=== PATIENT | female | born 1945 | race Caucasian/White ===

== ENCOUNTER 2018-04-11 21:37 | Emergency (ER) | payer MEDICARE, OTHER ==
[~2018-04-11] VITALS: Ht 167.6 cm; Wt 99.3 kg
[~2018-04-11 21:37] MED LIST: ANAS1TAB PO; BENZ-8 PO; CYCL5TAB PO; GUAI-108 PO; IRBE300T PO; LEVO100T PO; LEVO112T4 PO; LEVO750T31 PO
--- NOTE | 2018-04-11 22:38 | PHYS DOC ---
Past History Past Medical History: Cancer, Gallstones, Hypertension, Hypothyroid, Other Past Surgical History: Cancer Surgery, Cholecystectomy, Hysterectomy, Other Smoking: Non-smoker Alcohol Use: None Drug Use: None Adult General Chief Complaint Chief Complaint: HAND PROBLEM HPI HPI 72-year-old female presents after fall at home. The patient uses a cane and she tripped over her own feet. As she went down she fell with her right hand extended. She felt as though she hyperextended her second digit. She did not hit her head. She was not knocked out. She has no other injuries. When she first got up from the floor, it was difficult to bend her index finger. The pain has improved and she is able to open and close her hand. She took indomethacin for pain relief at home. She denies wrist or elbow pain. She is here to make sure it is not broken. Review of Systems Review of Systems Constitutional: Denies fever or chills [] Eyes: Denies change in visual acuity, redness, or eye pain [] HENT: Denies nasal congestion or sore throat [] Respiratory: Denies cough or shortness of breath [] Cardiovascular: No additional information not addressed in HPI [] GI: Denies abdominal pain, nausea, vomiting, bloody stools or diarrhea [] : Denies dysuria or hematuria [] Musculoskeletal: Right hand pain [] Integument: Denies rash or skin lesions [] Neurologic: Denies headache, focal weakness or sensory changes [] Endocrine: Denies polyuria or polydipsia [] All other systems were reviewed and found to be within normal limits, except as documented in this note. Allergies Allergies Allergies Coded Allergies Type Severity Reaction Last Updated Verified azithromycin Allergy Mild MINOR RASH 04/24/16 Yes Physical Exam Physical Exam Constitutional: Well developed, well nourished, no acute distress, non-toxic appearance. [] HENT: Normocephalic, atraumatic, bilateral external ears normal, oropharynx moist, no oral exudates, nose normal. [] Eyes: PERRLA, EOMI, conjunctiva normal, no discharge. [] Neck: Normal range of motion, no tenderness, supple, no stridor. [] Cardiovascular:Heart rate regular rhythm, no murmur [] Lungs & Thorax: Bilateral breath sounds clear to auscultation [] Abdomen: Bowel sounds normal, soft, no tenderness, no masses, no pulsatile masses. [] Skin: Warm, dry, no erythema, no rash. [] Back: No tenderness, no CVA tenderness. [] Extremities: Right second and third digit of the right hand swollen with mild ecchymosis. No obvious deformity. Range of motion appears to be intact.[] Neurologic: Alert and oriented X 3, normal motor function, normal sensory function, no focal deficits noted. [] Psychologic: Affect normal, judgement normal, mood normal. [] Current Patient Data Vital Signs Vital Signs Date Time Temp Pulse Resp B/P (MAP) Pulse Ox O2 Delivery O2 Flow Rate FiO2 04/11/18 21:56 98.0 83 18 98 Room Air EKG EKG [] Radiology/Procedures Radiology/Procedures [] Impressions: My reading: There is no fracture or dislocation. Course & Med Decision Making Course & Med Decision Making Pertinent Labs and Imaging studies reviewed. (See chart for details) The patient's x-rays negative for fracture. The patient is having improved range of motion since coming to the ED. The pain has improved slightly. I will give her a [place] 5/325 for pain and to help her sleep. I will also provide a prescription for 10 of these for home. The patient has a ride home with family. She is stable for discharge at this time. [] Dragon Disclaimer Dragon Disclaimer This electronic medical record was generated, in whole or in part, using a voice recognition dictation system. Departure Departure: Referrals: JUAN DAVID YOST DO (PCP) GABRIELLA VALDEZ DO Apr 11, 2018 22:38
[2018-04-11] MEDS ORDERED: HYDR-971 PO (23:30)
[2018-04-11] MEDS ORDERED: HYDROcodone/APAP 5/325MG 1 TAB TABLET PO ONE (23:30)
[2018-04-11 23:50] VITALS: BP 164/70
--- NOTE | 2018-04-12 08:04 | RAD ---
Examination: 3 views of the right hand HISTORY: History of fall, pain. COMPARISON: None available. FINDINGS: The alignment of the metacarpophalangeal joints, interphalangeal grossly appears unremarkable. There is no acute fracture or dislocation identified. IMPRESSION: No acute osseous findings Electronically signed by: Jorge Luis Santana MD (04/12/2018 8:00 AM) [facility]
== END 2018-04-11 23:59 | disposition home or self-care (01) ==
LOC: ER 21:37
DX: S60.031A Contusion of right middle finger without damage to nail, initial encounter (principal); S60.021A Contusion of right index finger without damage to nail, initial encounter; I10 Essential (primary) hypertension; E03.9 Hypothyroidism, unspecified; Z88.1 Allergy status to other antibiotic agents; W01.0XXA Fall on same level from slipping, tripping and stumbling without subsequent striking against object, initial encounter; Y93.89 Activity, other specified; Y99.8 Other external cause status; Y92.098 Other place in other non-institutional residence as the place of occurrence of the external cause
CPT/HCPCS: 73130; 99284

== ENCOUNTER → 2018-11-18 | Outpatient (CLI) | payer MEDICARE, OTHER ==
[~2018-11-18] MED LIST changes: +HYDR-3165 PO
--- NOTE | 2018-11-18 15:02 | RAD ---
EXAM: Dual energy x-ray absorptiometry (DEXA). HISTORY: Postmenopausal female presents for osteoporosis screening. COMPARISON: 05/27/2013. TECHNIQUE: Dual energy x-ray absorptiometry of the lumbar spine and right hip was performed. Calculation of bone mineral density based on standard deviations above or below the expected young adult normal value (T-score) was completed. FINDINGS: The average bone mineral density in the 1st through 4th lumbar vertebrae is 1.239 g/cmxcm, corresponding with a T-score of 0.5. There has been a 1.7% decrease in density of the lumbar spine compared to the prior study. The average total bone mineral density in the right hip is 0.747 g/cmxcm, corresponding with a T-score of -1.7. There has been a 2.7% decrease in density of the right hip compared to the prior study. IMPRESSION: 1. Osteopenia measured at the right hip. 2. Normal bone mineral density measured at the lumbar spine. Note: Definitions established by the World Health Organization: 1. Normal: T-score is -1.0 or above. 2. Osteopenia: T-score is between -1.0 and -2.5 . 3. Osteoporosis: T-score is -2.5 or below. Electronically signed by: Prudence Gongora MD (11/18/2018 2:59 PM) [place] [id number]
== END | disposition home or self-care (01) ==
LOC: DXRAD 11-18 14:00
PROVIDERS: ATTEND General Practice
DX: Z85.3 Personal history of malignant neoplasm of breast (principal); Z78.0 Asymptomatic menopausal state
CPT/HCPCS: 77080

== ENCOUNTER 2021-11-13 17:54 | Inpatient (IN) | payer MEDICARE, OTHER ==
[~2021-11-13] VITALS: Ht 167.6 cm; Wt 101.6 kg
--- NOTE | 2021-11-13 18:17 | PHYS DOC ---
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 I was turning by the refrigerator starting to go out the door to the grocery store.... I want to get therapy for the bad weather came in tonight and tomorrow.... But I went now all of a sudden... and I really hurt my knees... my lower legs and.... my right foot...it is particularly..sore.. and This right lower leg is really swollen.. it just happened... "..." The same thing happened back in May but they said everything was okay"... Patient is a 76 year old female who presents with above hx and complaints of fall and injury to lower legs. Patient has post polio sequela lower leg weakness and muscle loss. Has had multiple surgeries. Patient normally follows with Dr. Enriquez for care. Patient denies any fever ,chills. No recent travel. No sick ill contacts. Patient did get COVID vaccination x2 and flu vaccination. Patient denies any other injury other than to the lower legs. Patient rates the pain mostly in her right leg. Patient has past medical history of cancer, polio, hypertension, pneumonia. Patient has had cholecystectomy and hysterectomy and palliative repair lower limbs for function ( [place] and fixation). Review of Systems: Review of Systems: Constitutional: Denies fever or chills Eyes: Denies change in visual acuity HENT: Denies nasal congestion or sore throat Respiratory: Denies cough or shortness of breath Cardiovascular: Denies chest pain or edema GI: Denies abdominal pain, nausea, vomiting, bloody stools or diarrhea : Denies dysuria Musculoskeletal: Complains of lower leg pains from fall Integument: Denies rash Neurologic: Denies headache, focal weakness or sensory changes Endocrine: Denies polyuria or polydipsia Lymphatic: Denies swollen glands Psychiatric: Denies depression or anxiety Family History: Family History: Noncontributory to presentation Current Medications: Current Meds: See nursing for home meds Allergies: Allergies: Allergies Coded Allergies Type Severity Reaction Last Updated Verified azithromycin Allergy Mild MINOR RASH 04/24/16 Yes Physical Exam: PE: Constitutional: inacute distress, non-toxic appearance. [] HENT: Normocephalic, atraumatic, bilateral external ears normal, oropharynx [address], no oral exudates, nose normal. [] Eyes: PERRLA, EOMI, conjunctiva normal, no discharge. [] Neck: Normal range of motion, no tenderness, supple, no stridor. [] Cardiovascular: Tachycardia heart rate regular rhythm, no murmur [] Lungs & Thorax: Bilateral breath sounds clear to auscultation [] Abdomen: Bowel sounds normal, soft, no tenderness, no masses, no pulsatile masses. Obese. Old surgery scars. Skin: Warm, dry, no erythema, no rash. [Poor turgor Back: No tenderness, no CVA tenderness. [] Extremities: Bilateral lower leg tenderness, no cyanosis, no clubbing, ROM intact, bilateral lower leg edema. More pain in right lower leg. Surgery scars lower leg Neurologic: Alert and oriented X 3, moves all extremities on request but somewhat limited due to pain in lower limbs, does have distal sensory, no focal deficits noted. [] Psychologic: Affect anxious, judgement normal, mood normal. [] EKG: EKG: My interpretation EKG shows a sinus rhythm at 77 bpm. Leftward axis anterior fascicular block. Has a small right bundle branch block. No findings of acute STEMI with contralateral changes however. Time EKG is 2133 hrs. [] Radiology/Procedures: Radiology/Procedures: [address] [address] IMAGING REPORT Signed PATIENT: ANGELITA MORALES ACCOUNT: [id number] : 1945 LOCATION: SOUTH AGE: 76 SEX: F EXAM STATUS: ADM IN ORD. PHYSICIAN: JULIA PERDOMO MD REASON: Weakness, cough hx. polio PROCEDURE: PORTABLE CHEST 1V Exam: Chest one view INDICATION: Weakness, TECHNIQUE: Frontal view of the chest Comparisons: 04/26/2016 FINDINGS: Heart is mildly enlarged. Pulmonary vessels are within normal limits. The lung and pleural spaces are clear. IMPRESSION: No acute pulmonary process. Electronically signed by: Vicki Coronel MD (11/13/2021 11:01 PM) [facility] DICTATED AND SIGNED BY: VICKI CORONEL MD DATE: 11/13/212299 CC: JUAN DAVID YOST DO; SHERRI ROJAS MD; JULIA PERDOMO MD ~MTH0 0 [[address] [address] IMAGING REPORT Signed PATIENT: ANGELITA MORALES ACCOUNT: [id number] : 1945 LOCATION: ER AGE: 76 SEX: F EXAM STATUS: REG ER ORD. PHYSICIAN: JULIA PERDOMO MD REASON: Fall, bilateral knee pain, hx polio PROCEDURE: KNEE BILAT 4V Exam Date: 11/13/2021 6:53 PM XR TIBIA+FIBULA, XR KNEE 4 VIEWS WITH PATELLA Indication: Reason: Fall, bilateral lower leg pain, hx polio / Spl. Instructions: / History: . FINDINGS/ IMPRESSION: RIGHT: There is a nondisplaced acute fracture of the right proximal fibula diametaphysis without significant angulation. There is a suprapatellar joint effusion. Alignment and joint spaces are maintained. Small osteophytes are noted. Diffuse subcutaneous edema is noted. There is a suprapatellar joint effusion. LEFT: No acute fracture or dislocation. Alignment and joint spaces are maintained. Small osteophytes are noted. There is a fractured subtalar staple. Electronically signed by: Andrew Salazar MD (11/13/2021 8:16 PM) [facility] DICTATED AND SIGNED BY: ANDREW SALAZAR MD DATE: 11/13/212007 CC: JUAN DAVID YOST DO; JULIA PERDOMO MD ~IDO0 0 ][address] [address] IMAGING REPORT Signed PATIENT: ANGELITA MORALES ACCOUNT: [id number] : 1945 LOCATION: ER AGE: 76 SEX: F EXAM STATUS: REG ER ORD. PHYSICIAN: JULIA PERDOMO MD REASON: Fall, bilateral lower leg pain, hx polio PROCEDURE: TIBIA FIBULA BILAT Exam Date: 11/13/2021 6:53 PM XR TIBIA+FIBULA, XR KNEE 4 VIEWS WITH PATELLA Indication: Reason: Fall, bilateral lower leg pain, hx polio / Spl. Instructions: / History: . FINDINGS/ IMPRESSION: RIGHT: There is a nondisplaced acute fracture of the right proximal fibula diametaphysis without significant angulation. There is a suprapatellar joint effusion. Alignment and joint spaces are maintained. Small osteophytes are noted. Diffuse subcutaneous edema is noted. There is a suprapatellar joint eff usion. LEFT: No acute fracture or dislocation. Alignment and joint spaces are maintained. Small osteophytes are noted. There is a fractured subtalar staple. Electronically signed by: Andrew Salazar MD (11/13/2021 8:16 PM) [facility] DICTATED AND SIGNED BY: ANDREW SALAZAR MD DATE: 11/13/212007 CC: JUAN DAVID YOST DO; JULIA PERDOMO MD ~MTH0 0 Heart Score: C/O Chest Pain: No HEART Score for Chest Pain: HEART Score for Chest Pain Response (Comments) Value History Moderately Suspicious 1 ECG Nonspecific Repolarizatio 1 Age > 65 2 Risk Factors 1 or 2 Risk Factors 1 Troponin < Normal Limit 0 Total 5 Risk Factors: Risk Factors: DM, Current or recent (<one month) smoker, HTN, HLP, family history of CAD, obesity. Risk Scores: Score 0 - 3: 2.5% MACE over next 6 weeks - Discharge Home Score 4 - 6: 20.3% MACE over next 6 weeks - Admit for Clinical Observation Score 7 - 10: 72.7% MACE over next 6 weeks - Early Invasive Strategies Course & Med Decision Making: Course & Med Decision Making Pertinent Labs and Imaging studies reviewed. (See chart for details) Pt declining transfer to another hospital for orthro. consult. States she just wants pain control tonight until she can get set up at home.. Risks discussed with pt. - compartment syndrome ect. Pt. insistent on just admit for pain control tonight. Begged pt. to reconsider this decision, and consider transfer for orthro. consult. Pt. exhibit [employer] capacity. Discussed presentation, testing and treatment plan with . Advised will admit patient for pain control. Patient is aware we have no orthopedic consults in the hospital. Patient admitted for only pain control will need to follow-up with orthopedics. Wear splint. Elevated legs. Obtain a wheelchair. Have son rearrange home so patient will be able to manage. Currently patient lives alone Impression: 1. Fall 2. Lower limb injury bilateral 3. Diffuse edema with fracture of second metatarsal head on the right ankle /foot 4. Diffuse edema with fracture of staple on the left ankle/foot 5. Nondisplaced fracture of right fibular proximal with edema. 6. Hx Polio-sequela 7. Mild leukocytosis 14.8 [] Note there may be information loss- see Downtime ticket [id number]. Dragon Disclaimer: Dragon Disclaimer: This electronic medical record was generated, in whole or in part, using a voice recognition dictation system. Departure Departure: Referrals: JUAN DAVID YOST DO (PCP) Dragon Disclaimer This chart was dictated in whole or in part using Voice Recognition software in a busy, high-work load, and often noisy Emergency Department environment. It may contain unintended and wholly unrecognized errors or omissions. Dragon Disclaimer This chart was dictated in whole or in part using Voice Recognition software in a busy, high-work load, and often noisy Emergency Department environment. It may contain unintended and wholly unrecognized errors or omissions. Dragon Disclaimer This chart was dictated in whole or in part using Voice Recognition software in a busy, high-work load, and often noisy Emergency Department environment. It may contain unintended and wholly unrecognized errors or omissions. JULIA PERDOMO MD Nov 13, 2021 18:16
[2021-11-13] MEDS ORDERED: KETOROLAC 60 MG/2 ML VIAL. IM ONE (18:30)
[2021-11-13] MEDS ORDERED: oxyCODONE/APAP 5/325 1 TAB TABLET PO ONE (18:30)
[2021-11-13 20:15] LABS: INFLUENZA A PATIENT NEGATIVE (NEGATIVE); INFLUENZA B PATIENT NEGATIVE (NEGATIVE)
--- NOTE | 2021-11-13 20:18 | RAD ---
Exam Date: 11/13/2021 6:53 PM XR TIBIA+FIBULA, XR KNEE 4 VIEWS WITH PATELLA Indication: Reason: Fall, bilateral lower leg pain, hx polio / Spl. Instructions: / History: . FINDINGS/ IMPRESSION: RIGHT: There is a nondisplaced acute fracture of the right proximal fibula diametaphysis without significant angulation. There is a suprapatellar joint effusion. Alignment and joint spaces are maintained. S mall osteophytes are noted. Diffuse subcutaneous edema is noted. There is a suprapatellar joint eff usion. LEFT: No acute fracture or dislocation. Alignment and joint spaces are maintained. Small osteophytes are noted. There is a fractured subtalar staple. Electronically signed by: Mauro Salazar MD (11/13/2021 8:16 PM) [facility]
--- NOTE | 2021-11-13 20:34 | RAD ---
Exam Date: 11/13/2021 6:53 PM XR BILAT FEET 3 VIEWS Indication: Reason: Fall, bilateral foot pain, hx polio / Spl. Instructions: / History: . FINDINGS/ IMPRESSION: RIGHT: There is a nondisplaced impacted acute fracture of the second metatarsal head. Moderate degenerative changes noted. Diffuse osteopenia limits evaluation. Diffuse soft tissue swelling is noted. Subt alar fusion noted with intact staple. LEFT: Subtalar fusion noted with fractured staple. No acute fracture or dislocation. Moderate degenerative changes noted. Diffuse osteopenia limits ev aluation. Diffuse soft tissue swelling noted. Electronically signed by: Mauro Salazar MD (11/13/2021 8:32 PM) [facility]
[2021-11-13] MEDS ORDERED: IV RINGERS SOLUTION,LACTATED 1,000 ML IV SCH ×2 (21:00→21:30)
[2021-11-13] MEDS ORDERED: ONDANSETRON PF 4 MG/2 ML VIAL. IVP PRN (21:30)
[2021-11-13] MEDS ORDERED: MORPHINE SULFATE 2 MG/ML DISP.SYRIN. IVP PRN (21:30)
[2021-11-13] MEDS ORDERED: ACETAMINOPHEN 325 MG TABLET PO PRN (21:30)
--- NOTE | 2021-11-13 23:03 | RAD ---
Exam: Chest one view INDICATION: Weakness, TECHNIQUE: Frontal view of the chest Comparisons: 04/26/2016 FINDINGS: Heart is mildly enlarged. Pulmonary vessels are within normal limits. The lung and pleural spaces are clear. IMPRESSION: No acute pulmonary process. Electronically signed by: Vicki Cummings MD (11/13/2021 11:01 PM) [facility]
[2021-11-13 23:38] LABS: BASO # 0.1 x10^3/uL (0.0-0.2); BASO % 1 % (0-3); EOS # 0.1 x10^3/uL (0.0-0.7); EOS % 0 % (0-3); HEMATOCRIT 42.8 % (36.0-47.0); HEMOGLOBIN 14.6 g/dL (12.0-15.5); LYMPH # 3.9 x10^3/uL (1.0-4.8); LYMPH % 27 % (24-48); MEAN CORPUSCULAR HEMOGLOBIN 32 pg (25-35); MEAN CORPUSCULAR HGB CONC 34 g/dL (31-37); MEAN CORPUSCULAR VOLUME 94 fL (79-100); MONO # 0.7 x10^3/uL (0.0-1.1); MONO % 5 % (0-9); NEUT % 68 % (31-73); PLATELET COUNT 222 x10^3/uL (140-400); RED BLOOD COUNT 4.56 x10^6/uL (3.50-5.40); RED CELL DISTRIBUTION WIDTH 12.9 % (11.5-14.5); WHITE BLOOD COUNT 14.8 x10^3/uL (4.0-11.0)
[2021-11-13 23:45] LABS: CALCIUM 9.1 mg/dL (8.5-10.1); CREATININE 0.6 mg/dL (0.6-1.0); GFR 97.7; MAGNESIUM 2.1 mg/dL (1.8-2.4); POTASSIUM 3.6 mmol/L (3.5-5.1)
[2021-11-14 00:10] VITALS: BP 174/80
[2021-11-14 05:00] VITALS: BP 166/77
--- NOTE | 2021-11-14 06:38 | EKG ---
[address] [address] Test Date: 2021-11-13 Test Time: 21:33:45 Pat Name: ANGELITA MORALES Department: Room: 105 A Gender: F Associate [employer]: : 1945 Requested By: JULIA PERDOMO Order Number: [id number] Reading MD: Wilfredo Duque MD Measurements Intervals [place] Rate: 77 P: 25 CO: 172 QRS: -43 QRSD: 94 T: 38 QT: 380 QTc: 432 Interpretive Statements SINUS RHYTHM lad Electronically Signed On 11-20-2021 16:17:53 AUTOGRAPHER by Wilfredo Duque MD
[2021-11-14] MEDS: IPRATRPIUM/ALBUTEROL 0.5/2.5MG 3 ML NEBU. NEB SCH ×3 (08:00→15:35)
[2021-11-14] MEDS ORDERED: KETOROLAC 30 MG/ML VIAL. ONE (08:25)
[2021-11-14] MEDS: oxyCODONE/APAP 7.5/325 1 TAB TABLET PO PRN ×2 (08:54→19:31)
[2021-11-14] MEDS: KETOROLAC 30 MG/ML VIAL. IVP PRN ×2 (08:54→19:32)
[2021-11-14 09:27] LABS: BACTERIA,URINE 0 /HPF (0-FEW); CLARITY,URINE HAZY; COLOR,URINE YELLOW; GLUCOSE,URINE NEG (NEG); NITRITE,URINE NEG (NEG); SQUAMOUS EPITHELIAL CELL,UR MOD /LPF; UROBILINOGEN,URINE 0.2 mg/dL (0.2 mg/dL)
[2021-11-14 09:28] LABS: HYALINE CASTS, URINE OCC /HPF
[2021-11-14 12:09] VITALS: BP 199/90
[2021-11-14] MEDS: LOSARTAN 50 MG TABLET. PO SCH (12:09)
[2021-11-14 16:21] VITALS: BP 178/83
[2021-11-14 19:00] VITALS: BP 129/87
--- NOTE | 2021-11-14 19:20 | HP ---
DATE OF SERVICE: 11/14/2021 ADMIT DATE: 11/13/2021 HISTORY OF PRESENT ILLNESS: A 76-year-old female came in through the Emergency Room. The patient was going out to the grocery store. She is a post-polio syndrome individual. Apparently, she fell on her legs, really hurt her right knee, right foot in particular. The right lower leg was really swollen. Things just happened very quickly. She has been having problems off and on for the last several months with this falling type of injury. It could be from her postpolio sequela, lower leg weakness, and muscle loss. Has had multiple surgeries. The patient also denies any recent travel. She has had COVID vaccinations x2, plus flu vaccination. She denies any back injuries. PAST MEDICAL HISTORY: Multiple, include that of cardiac disorders, hypertension, cholecystectomy, mastectomy, lumpectomy, hysterectomy, x2, several surgeries on her legs as a result of post-polio syndrome, hypothyroidism, cancer chemotherapy. Immunizations were up-to-date, as indicated above. She has had a left mastectomy. She has had multiple surgeries as a child on her feet and legs. She also has a hysterectomy for uterine cancer. MEDICATIONS: The patient's medications include anastrozole 1 mg, irbesartan 300 mg, levothyroxine 112 mcg daily. ALLERGIES: The patient has an allergy to AZITHROMYCIN. SOCIAL HISTORY: Denies smoking, alcohol or drug use. FAMILY HISTORY: Noncontributory. REVIEW OF SYSTEMS: The patient denies chest pain, shortness of breath. Denies any melena, hematochezia, or hematemesis. Denies abdominal pain. Does have generalized weakness and bruising to her legs. The patient otherwise is baseline, stable. PHYSICAL EXAMINATION: GENERAL: The patient is a pleasant white female, in pain. Otherwise, well developed, well nourished. VITAL SIGNS: Blood pressure 150/98, respiratory rate 20, pulse 80, afebrile, 96% on room air. HEENT: The head was atraumatic, normocephalic. Eyes: PERRL without jaundice. The mouth and throat were normal. NECK: Supple without JVD, carotid bruits, nor thyroidmegaly. LUNGS: Basically clear to auscultation. CARDIOVASCULAR: Regular sinus rhythm, S1, S2, without murmur, rub, thrill, or extra heart sound. ABDOMEN: Protuberant, soft, nontender. No rebound or guarding. Positive bowel sounds. No hepatosplenomegaly was noted. EXTREMITIES: The legs show marked atrophy, musculoskeletal atrophy to the lower extremity. The patient is bound and bandaged quite tightly. NEUROLOGIC: Otherwise, speech was fluent, spontaneous, and appropriate. LABORATORY DATA: The patient's CBC was within normal limits except for a white count elevated at 14.8. Sodium and potassium 140 and 3.6, BUN and creatinine 14 and 0.6. TSH was normal. The patient's serology was negative for SARS-COVID, as well as flu were negative. The patient's urine did show specific gravity greater than 1.030. Did have a trace of leukocytes and 5-10 whites, negative nitrites. The patient's x-rays were taken. Chest x-ray was unremarkable. X-rays of the right lower leg showed a nondisplaced acute fracture of the right proximal fibular diametaphysis without significant angulation or suprapatellar joint effusion. Alignment of the joint spaces are maintained. Small osteophyte, diffuse subcutaneous edema was noted and subpatellar joint effusion. On the left, everything was basically normal. There is a fractured subpatellar staple. The knee x-rays were basically as what was stated earlier on the lower extremities. Foot x-ray, right, showed a nondisplaced impacted acute fracture of the second metatarsal head, moderate degenerative changes noted, diffuse osteopenia, limits evaluation. Subtalar fusion noted in the intact staple. Left shows subtalar fusion noted with fractured staple. Otherwise, moderate degenerative changes, diffuse osteopenia and diffuse soft tissue swelling is noted. IMPRESSION: Multiple falls, postpolio syndrome, fracture to the right proximal fibular diametaphysis without angulation, effusion to the joint, diffuse subcutaneous edema. Left lower extremity shows some osteophytes and a possible fractured subtalar staple, dehydration, essential hypertension. Blood pressure went up to 170/80 (NC). The patient had an EKG, showed normal sinus rhythm. We will go ahead and continue to monitor the patient's pain management, some mild anticoagulation. We will probably need to transfer obviously for orthopedic consultation and control her blood pressure by adding amlodipine 10 mg daily. ROSE/LASHAWN DR: PJC/nts TID: [id number]
[2021-11-14] MEDS: APIXABAN 2.5 MG TABLET PO SCH (19:31)
[2021-11-14] MEDS: amLODIPine BESYLATE 10 MG TABLET PO SCH (19:34)
[2021-11-14] MEDS ORDERED: IPRATRPIUM/ALBUTEROL 0.5/2.5MG 3 ML NEBU. NEB PRN (20:15)
[2021-11-14 23:00] VITALS: BP 178/73
[2021-11-15 05:45] VITALS: BP 164/73
[2021-11-15] MEDS: KETOROLAC 30 MG/ML VIAL. IVP PRN ×2 (05:57→19:53)
[2021-11-15] MEDS: oxyCODONE/APAP 7.5/325 1 TAB TABLET PO PRN (05:57)
[2021-11-15] MEDS ORDERED: amLODIPine BESYLATE 10 MG TABLET PO SCH (09:00)
[2021-11-15] MEDS: amLODIPine BESYLATE 10 MG TABLET PO SCH (09:21)
[2021-11-15] MEDS: LEVOTHYROXINE 112 MCG TABLET PO SCH (09:21)
[2021-11-15] MEDS: APIXABAN 2.5 MG TABLET PO SCH ×2 (09:22→19:53)
[2021-11-15] MEDS: LOSARTAN 50 MG TABLET. PO SCH (09:23)
[2021-11-15] MEDS ORDERED: ONDANSETRON PF 4 MG/2 ML VIAL. ONE (09:53)
[2021-11-15] MEDS: ONDANSETRON PF 4 MG/2 ML VIAL. IVP PRN ×3 (09:56→22:51)
[2021-11-15 11:50] VITALS: BP 171/72
[2021-11-15 12:40] LABS: BASO # 0.1 x10^3/uL (0.0-0.2); BASO % 1 % (0-3); EOS # 0.4 x10^3/uL (0.0-0.7); EOS % 4 % (0-3); LYMPH # 2.3 x10^3/uL (1.0-4.8); LYMPH % 22 % (24-48); MEAN CORPUSCULAR HEMOGLOBIN 33 pg (25-35); MEAN CORPUSCULAR HGB CONC 34 g/dL (31-37); MEAN CORPUSCULAR VOLUME 95 fL (79-100); MONO # 0.5 x10^3/uL (0.0-1.1); MONO % 5 % (0-9); NEUT # 7.1 x10^3uL (1.8-7.7); NEUT % 68 % (31-73); PLATELET COUNT 189 x10^3/uL (140-400); RED CELL DISTRIBUTION WIDTH 12.8 % (11.5-14.5); WHITE BLOOD COUNT 10.4 x10^3/uL (4.0-11.0)
[2021-11-15 13:19] LABS: CALCIUM 8.6 mg/dL (8.5-10.1); CREATININE 0.5 mg/dL (0.6-1.0); GFR 120.6; POTASSIUM 3.8 mmol/L (3.5-5.1)
--- NOTE | 2021-11-15 14:22 | RAD ---
Exam Date: 11/15/2021 2:[address] HEAD/BRAIN WO Indication: Reason: HEAD TRAUMA / Spl. Instructions: / History: . TECHNIQUE: Head CT was performed without intravenous contrast. One or more of the following dose re duction techniques were utilized: *Automated exposure control (AEC) *Adjustment of mA and/or kV according to patient size *Use of iterative reconstruction technique *CT scan done according to ALARA, or ALARA/IMAGE GENTLY FINDINGS: The ventricles and sulci are prominent consistent with cerebral volume loss. Patchy ill-defined low attenuation areas in the subcortical and periventricular white matter bilaterally are consistent with microvascular disease. There is no evidence of acute intracranial hemorrhage, extra-axial collecti on, mass effect, midline shift, or acute territorial infarct. No lesion of the skull base or the calv arium is seen. The visualized paranasal sinuses, mastoid air cells and orbits are normal in appearanc e. IMPRESSION: No evidence for acute intracranial abnormality. Volume loss and microvascular disease. Electronically signed by: Mauro Salazar MD (11/15/2021 2:19 PM) [facility]
[2021-11-15 15:35] VITALS: BP 186/85
[2021-11-15] MEDS: ACETAMINOPHEN 500 MG TABLET PO PRN ×2 (17:32→22:48)
[2021-11-15 20:32] VITALS: BP 185/74
[2021-11-15] MEDS ORDERED: cloNIDine HCL 0.1 MG TABLET PO SCH (21:00)
--- NOTE | 2021-11-15 23:05 | PN ---
SUBJECTIVE: A 76-year-old post-polio patient with multiple falls and fracture to her various bones in her body. The patient was noted to have a nondisplaced acute fracture of the right proximal fibula. The patient has been discussed with the orthopedic doctors down at and they do not recommend any inpatient care down at their facility that she can follow up with Dr. Burnette at [phone] [facility] as an outpatient to follow up on this; however, the patient herself was feeling somewhat nauseated, had some vomiting this morning. OBJECTIVE: VITAL SIGNS: Blood pressure 186/85, respiratory rate 18, pulse 80, afebrile, 93 on room air (NC) on the blood pressure. GENERAL: The patient otherwise presently alert, looks a little bit ill. LUNGS: Diminished, but clear. CARDIOVASCULAR: Stable. ABDOMEN: Soft, somewhat bloated, had a bowel movement yesterday. Positive bowel sounds, no hepatosplenomegaly. EXTREMITIES: No clubbing, cyanosis. Baseline there with atrophy and tenderness noted. We will continue to monitor the patient accordingly, make further evaluation on her as indicated and make adjustments on her essential hypertension, which seems more of the issue right at the present time as the orthopedic doctors do not believe she needs any type of medical care for the bones at the present time or surgical treatment that is probably and not in the future, but will be seen by Dr. Burnette as an outpatient. IMPRESSION: Noted essential hypertensive urgency, multiple fractures, post-polio syndrome, history of uterine and breast cancer. PLAN: Continue to monitor carefully on that blood pressure and make further adjustments as indicated. ROSE/CARMEN/MELLISSA DR: Fritz TID: [id number]
[2021-11-15 23:52] VITALS: BP 183/76
[2021-11-16 05:42] VITALS: BP 144/72
[2021-11-16] MEDS: KETOROLAC 30 MG/ML VIAL. IVP PRN (05:52)
[2021-11-16] MEDS: ACETAMINOPHEN 500 MG TABLET PO PRN ×2 (05:52→20:36)
[2021-11-16] MEDS: LEVOTHYROXINE 112 MCG TABLET PO SCH (07:58)
[2021-11-16] MEDS: ONDANSETRON PF 4 MG/2 ML VIAL. IVP PRN (08:12)
[2021-11-16] MEDS ORDERED: NEOMY/BACITR/POLYMYXIN OINT PACKET. TP ONE (09:45)
[2021-11-16] MEDS: oxyCODONE/APAP 7.5/325 1 TAB TABLET PO PRN (09:58)
[2021-11-16] MEDS: LOSARTAN 50 MG TABLET. PO SCH (09:58)
[2021-11-16] MEDS: amLODIPine BESYLATE 10 MG TABLET PO SCH (09:58)
[2021-11-16] MEDS: APIXABAN 2.5 MG TABLET PO SCH ×2 (09:58→20:37)
[2021-11-16 11:06] VITALS: BP 143/53
[2021-11-16 14:54] VITALS: BP 127/54
[2021-11-16] MEDS: cloNIDine HCL 0.1 MG TABLET PO SCH ×2 (15:01→20:37)
[2021-11-16 19:42] VITALS: BP 159/72
[2021-11-16] MEDS: NEOMY/BACITR/POLYMYXIN OINT PACKET. TP SCH (20:37)
[2021-11-16] MEDS: DOCUSATE SODIUM 100 MG CAPSULE PO PRN (20:55)
[2021-11-16 23:00] VITALS: BP 114/57
--- NOTE | 2021-11-16 23:47 | PN ---
DATE: 11/16/2021 SUBJECTIVE: A 76-year-old female in with multiple injuries to her legs as a result of multiple falls over here last several months. The patient has been reviewed by a couple of orthopedic doctors who feel no surgery is required, but still needs to be seen by orthopedics to be evaluated for weightbearing and other therapies. OBJECTIVE: VITAL SIGNS: Blood pressure 127/54, respiratory rate 18, pulse 65 and afebrile. The patient is feeling somewhat better today. She is not as nauseated and otherwise as noted her blood pressure has come down to 127/50, respiratory rate 18, pulse 60 and afebrile. GENERAL: The patient is alert and oriented. LUNGS: Diminished, but clear. CARDIOVASCULAR: Stable. ABDOMEN: Soft, nontender. EXTREMITIES: Legs show coarse marked atrophy and tenderness to the right lower leg where this nondisplaced acute fracture to the right proximal fibula is noted. The patient otherwise continues to have pain and is monitoring that level as well, but otherwise, we will continue to monitor and try to get her transferred per her request to an orthopedic doctor at a facility that has a bed available for her. IMPRESSION AND PLAN: Noted therefore of multiple falls, post-polio syndrome, fracture to the right proximal fibular diametaphysis without angulation as well as lower extremity edema, osteophytes fracture to the subtalar staple as well as dehydration, essential hypertension, which is brought under control. Continue possibly with PT/OT here and hopefully arrangements can be made for her transfer to a facility with orthopedic evaluation. ROSE/CARMEN/CARMINE DR: Fritz TID: [id number]
[2021-11-17 06:09] VITALS: BP 148/67
--- NOTE | 2021-11-17 06:57 | EKG ---
[address] [address] Test Date: 2021-11-14 Test Time: 09:31:44 Pat Name: ANGELITA MORALES Department: Room: 105 A Gender: F Senior Bookkeeper: : 1945 Requested By: SHERRI ROJAS Order Number: [id number] Reading MD: Wilfredo Duque MD Measurements Intervals [place] Rate: P: OK: QRS: QRSD: T: QT: QTc: Interpretive Statements sinus rhythm lafb 1st degree avb probable Electronically Signed On 11-20-2021 16:17:21 FIELD ARTILLERY BASIC by Wilfredo Duque MD
[2021-11-17] MEDS: LOSARTAN 50 MG TABLET. PO SCH (07:57)
[2021-11-17] MEDS: APIXABAN 2.5 MG TABLET PO SCH (07:58)
[2021-11-17] MEDS: cloNIDine HCL 0.1 MG TABLET PO SCH (07:59)
[2021-11-17] MEDS: DOCUSATE SODIUM 100 MG CAPSULE PO PRN (07:59)
[2021-11-17] MEDS: KETOROLAC 30 MG/ML VIAL. IVP PRN (07:59)
[2021-11-17] MEDS: amLODIPine BESYLATE 10 MG TABLET PO SCH (08:00)
[2021-11-17] MEDS: LEVOTHYROXINE 112 MCG TABLET PO SCH (08:00)
[2021-11-17] MEDS: NEOMY/BACITR/POLYMYXIN OINT PACKET. TP SCH (08:06)
--- NOTE | 2021-11-17 08:12 | RAD ---
Exam: XR FOOT_RIGHT 2 VIEWS History: Increased swelling and pain. Comparison: 11/13/2021 FINDINGS/ IMPRESSION: Splint limits visualization of detail. Decreased osseous mineralization. Redemonstrated second metata rsal head fracture seen to better advantage on prior exam. No new fractures are identified. Degenerat andriy changes at the ankle and hindfoot with subtalar fusion stable. Dorsal forefoot soft tissue swelli ng. Electronically signed by: Ton Moise MD (11/17/2021 8:10 AM) [id number]
[2021-11-17 08:19] VITALS: BP 142/71
[2021-11-17] MEDS ORDERED: AMLO-187 PO (10:54)
[2021-11-17] MEDS ORDERED: CLON0.1T PO (10:54)
[2021-11-17] MEDS ORDERED: APIX2.5T PO (10:54)
[2021-11-17] MEDS ORDERED: ACET500T68 PO (10:54)
[2021-11-17] MEDS ORDERED: DOCU-109 PO (10:54)
--- NOTE | 2021-11-17 11:00 | DISCH ---
DISCHARGE ORDERS DISCHARGE DATE: Nov 17, 2021 FINAL DIAGNOSIS Fracture to the right proximal fibular diametaphysis Left lower extremity osteophytes with possible fractured subtalar staple Dehydration Frequent Falls CONDITION AT DISCHARGE: Stable Code Status: Full SNF STAY <30 DAYS: Yes HOSPICE: No HOSPICE EVALUATE & TREAT: No ADMIT TO LTAC: No POST DISCHARGE ORDERS: ACTIVITY ORDERS: Activity as tolerated WEIGHT BEARING STATUS: Other, see below (non weight bearing until Orthopedic appointment) DIET AFTER DISCHARGE: Regular DISCHARGE MEDICATIONS: Home Meds Active Scripts Levothyroxine Sodium (LEVOTHYROXINE SODIUM) 112 Mcg Tablet, 112 MCG PO DAILYAC, #0 Prov:RAJEEV RUIZ DO 04/26/16 Reported Medications Anastrozole (ANASTROZOLE) 1 Mg Tablet, 1 MG PO QTUFR for CHEMOTHERAPY Every Saturday and Saturday04/23/16 Irbesartan (AVAPRO) 300 Mg Tablet, 300 MG PO DAILY for HIGH BLOOD PRESSURE LAST DOSE THIS MORNING NEXT DOSE TOMORROW 04/23/16 Discontinued Reported Medications Cyclobenzaprine Hcl (CYCLOBENZAPRINE HCL) 5 Mg Tablet, 5 MG PO BID PRN for MUSCLE PAIN LAST DOSE THIS MORNING NEXT DOSE NEEDED 04/23/16 SHERRI ROJAS MD Nov 17, 2021 11:00
[2021-11-17 11:11] VITALS: BP 160/66
[2021-11-17] MEDS: ACETAMINOPHEN 500 MG TABLET PO PRN (13:23)
--- NOTE | 2021-11-21 19:54 | DS ---
DATE OF DISCHARGE: 11/17/2021 HOSPITAL COURSE: A 76-year-old female with multiple injuries to her legs as a result of multiple falls over the last several months. The patient has reviewed a couple of orthopedic doctors and feel no surgery is required, although the patient did have significant pain to her lower extremities and therefore had multiple falls. The patient received physical and occupational therapy. She will be moved to a rehab center. The patient has postpolio syndrome complicating the issue with marked weakness to the lower legs as well as atrophy. IMPRESSION: Therefore, postpolio syndrome with multiple fractures to the lower extremities. Fracture to the right proximal fibular diametaphysis without angulation, lower extremity edema secondary to multiple falls, osteophytes, fracture to the subtalar staple of the left ankle as well as general dehydration, essential hypertension, hyperglycemia, COVID negative, possible urinary tract infection. The patient was controlled on her high blood pressure as well as her sugars monitored. Physical and occupational therapy. She was stabilized and then transferred to the care facility to [place] for continued rehabilitation care and make further evaluation on her as a result of that and will be seen by Orthopedics as an outpatient. ROSE/ROSA/CARMINE DR: ROSE/chanel TID: [id number]
== END 2021-11-17 15:51 | DRG 563 ==
LOC: ER 17:54 → 1 SOUTH 22:57
PROVIDERS: ADMIT Family Medicine; ATTEND Family Medicine
DX: S82.831A Other fracture of upper and lower end of right fibula, initial encounter for closed fracture (principal); N39.0 Urinary tract infection, site not specified; D72.829 Elevated white blood cell count, unspecified; E03.9 Hypothyroidism, unspecified; E11.65 Type 2 diabetes mellitus with hyperglycemia; G14 Postpolio syndrome; Z20.822 Contact with and (suspected) exposure to COVID-19; W18.30XA Fall on same level, unspecified, initial encounter; E86.0 Dehydration; S92.321A Displaced fracture of second metatarsal bone, right foot, initial encounter for closed fracture; I16.0 Hypertensive urgency; Z85.3 Personal history of malignant neoplasm of breast; Z85.42 Personal history of malignant neoplasm of other parts of uterus; Z90.12 Acquired absence of left breast and nipple; Z90.49 Acquired absence of other specified parts of digestive tract; Z90.710 Acquired absence of both cervix and uterus; Z88.1 Allergy status to other antibiotic agents; Y93.89 Activity, other specified; Y92.89 Other specified places as the place of occurrence of the external cause; Y99.8 Other external cause status
CPT/HCPCS: 29505; 36415; 70450; 71045; 73620; 80048; 81001; 83735; 84443; 85025; 85610; 85730; 87086; 87428; 93005; 96372; J1885; J2405; U0003; 73564-50; 73590-50; 73630-50; 99285-25